=== PATIENT | female | born 1990 | race Caucasian/White ===

== ENCOUNTER 2017-11-13 11:08 | Day surgery (SDC) | payer OTHER ==
[~2017-11-13] VITALS: Ht 170.2 cm; Wt 128.4 kg
[~2017-11-13 11:08] MED LIST: ALBU90OI INH; IBUP800 PO; IRON PO; MONTELUKAST SOD10 MG PO; OXYACE5T PO; QNASL8.7 GM INH; SALM50IP INH
== END 2017-11-13 22:58 | disposition home or self-care (01) ==
LOC: ORSCMMR 11:08
PROVIDERS: Surgery
PROC: 0FT44ZZ Resection of Gallbladder, Percutaneous Endoscopic Approach (ICD-10-PCS; principal; 2017-11-13 11:00)
PROC: BF031ZZ Plain Radiography of Gallbladder and Bile Ducts using Low Osmolar Contrast (ICD-10-PCS; principal; 2017-11-13 11:00)
DX: K80.11 Calculus of gallbladder with chronic cholecystitis with obstruction (principal); J45.909 Unspecified asthma, uncomplicated; E66.01 Morbid (severe) obesity due to excess calories; Z68.41 Body mass index [BMI] 40.0-44.9, adult; Z79.899 Other long term (current) drug therapy
CPT/HCPCS: 74300; 88304; C1729; J0690; J1100; J1885; J2250; J2405; J2550; J2710; J2765; J3010; J7030; J7120

== ENCOUNTER → 2019-04-18 | Outpatient (CLI) | payer OTHER | END | disposition home or self-care (01) | LOC: LAB EV 19:06 → LAB SHORT 19:06 | DX: R07.0 Pain in throat (principal) | CPT/HCPCS: 87081 ==

== ENCOUNTER 2025-02-12 08:04 | Day surgery (SDC) | payer OTHER ==
[~2025-02-12] VITALS: Ht 172.7 cm; Wt 87.6 kg
[~2025-02-12 08:04] MED LIST changes: +Lactated Ringer's 1,000 ML IV ONE; +propofoL 40 ML IV ONE
[2025-02-12] MEDS ORDERED: FLUT1DIS5 (08:33)
[2025-02-12] MEDS ORDERED: OMEP20ER (08:34)
[2025-02-12] MEDS ORDERED: QSYMIA 3.75 MG (08:37)
[2025-02-12] MEDS ORDERED: Lactated Ringer's 1,000 ML IV ONE (09:23)
[2025-02-12 10:47] VITALS: BP 109/75
== END 2025-02-12 10:21 | disposition home or self-care (01) ==
LOC: ORSCSDS 08:04
PROVIDERS: Surgery
PROC: 0DB68ZX Excision of Stomach, Via Natural or Artificial Opening Endoscopic, Diagnostic (ICD-10-PCS; principal; 2025-02-12 09:30)
PROC: 0DB48ZX Excision of Esophagogastric Junction, Via Natural or Artificial Opening Endoscopic, Diagnostic (ICD-10-PCS; principal; 2025-02-12 09:30)
DX: K21.9 Gastro-esophageal reflux disease without esophagitis (principal); K22.70 Barrett's esophagus without dysplasia; N18.30 Chronic kidney disease, stage 3 unspecified; J45.909 Unspecified asthma, uncomplicated; Z98.84 Bariatric surgery status; K29.70 Gastritis, unspecified, without bleeding; Z79.899 Other long term (current) drug therapy
CPT/HCPCS: 88305; J2704; J7120